=== PATIENT | female | born 1995 | race Caucasian/White ===

== ENCOUNTER 2016-06-13 08:36 | Emergency (ER) | payer MEDICAID ==
[~2016-06-13] VITALS: Ht 147.3 cm; Wt 58.6 kg
[2016-06-13 10:38] VITALS: BP 110/64
== END 2016-06-13 10:38 | disposition home or self-care (01) ==
LOC: ED 08:36
DX: O26.892 Other specified pregnancy related conditions, second trimester (principal); G44.209 Tension-type headache, unspecified, not intractable; Z3A.16 16 weeks gestation of pregnancy
CPT/HCPCS: J2765

== ENCOUNTER 2018-10-03 08:46 | Emergency (ER) | payer OTHER ==
[~2018-10-03] VITALS: Ht 147.3 cm; Wt 73.5 kg
[2018-10-03 08:58] VITALS: Ht 147.3 cm; Wt 73.5 kg
[2018-10-03 11:30] VITALS: BP 107/72
== END 2018-10-03 11:58 | disposition home or self-care (01) ==
LOC: ED 08:46
DX: O26.891 Other specified pregnancy related conditions, first trimester (principal); O21.9 Vomiting of pregnancy, unspecified; O99.211 Obesity complicating pregnancy, first trimester; Z3A.14 14 weeks gestation of pregnancy; Z98.890 Other specified postprocedural states
CPT/HCPCS: 36415